=== PATIENT | male | born 1975 | race Two or more races ===

== ENCOUNTER 2025-05-02 12:39 | Emergency (ER) | payer OTHER, SELFPAY ==
[2025-05-02 12:42] VITALS: BP 162/101
[2025-05-02] MEDS: ZOFRAN 4 MG IV (13:11)
[2025-05-02] MEDS: TORADOL 15 MG IV (13:13)
[2025-05-02] MEDS: LR 1000 IV (13:13)
[2025-05-02 13:31] LABS: Hematocrit 46.5 % (39.0-52.0); Hemoglobin 15.2 g/dL (13.0-18.0); Mean Corp Hgb Conc. 32.7 g/dL (33.0-37.0); Mean Corpuscular Volume 79.2 fL (80.0-94.0); Nucleated Red Blood Cells % 0 % (-); Platelet Count 226 10^3/uL (130-400); Red Cell Dist. Width 13.8 % (11.5-14.5)
[2025-05-02 13:45] LABS: ALT (SGPT) 14 U/L (0-50); AST (SGOT) 29 U/L (17-59); Albumin 5.1 g/dl (3.5-5.0); Alkaline Phosphatase 86 U/L (38-126); Blood Urea Nitrogen 27 mg/dl (9-20); Calcium 9.5 mg/dl (8.4-10.2); Carbon Dioxide 28 mmol/L (22-30); Chloride 104 mmol/L (98-107); Glucose 131 mg/dl (70-99); Lipase 244 U/L (23-300); Potassium 4.9 mmol/L (3.5-5.1); Sodium 138 mmol/L (135-145); Total Protein 8.6 g/dl (6.3-8.2); eGFR > 60.00
--- NOTE | 2025-05-02 14:24 | ED.GENMED ---
History of Present Illness
General
Chief Complaint: Abdominal Pain
Time Seen by Provider: 05/02/25 12:45
History of Present Illness
History of Present Illness:
49-year-old male with no significant past medical history presents to the emergency department for evaluation of left lower quadrant pain intractable vomiting beginning at 3 AM today. No diarrhea. Pain has episodic severe waves of pain, pain does
not radiate. No dysuria or hematuria. No ill contacts.
Review of Systems
Review of Systems
Allergies reviewed?: Yes
All Other Systems: ROS reviewed and negative except as documented in HPI and ROS
Phy Exam
Physical Exam
Physical Exam:
GEN: Well appearing, NAD, WDWN
HEENT: Oral mucosa moist, no scleral icterus
Cardiac: Regular rate
Lung: No respiratory distress, no tachypnea
Abdomen: Soft, grossly nontender
MSK: No gross deformity or injuries
Skin: Good color, no pallor or jaundice, no rashes
Neuro: AO x3, moves all extremities freely
Psych: Calm, cooperative
Course
Orders/Labs/Results
Orders:
Orders
05/02/25 13:02
Ketorolac [Toradol] 15 mg IV NOW STA
Lactated Ringers [Lr] 1,000 ml IV BOLUS
Ondansetron Injectable [Zofran] 4 mg IV NOW STA
05/02/25 13:10
Complete Blood Count/With Diff Urgent
Comprehensive Metabolic Panel Urgent
Lipase Urgent
05/02/25 14:00
CT Abd/Pel (IV only)-DH only Urgent
Comment:
Reason For Exam: N/V/LLQ pain
05/02/25 15:36
Urinalysis Reflex To Culture Urgent
Date Specimen was Collected: 05/02/25
Time Specimen was Collected: 15:22
Urine Microscopic Reflex Cult Urgent
Abnormal Lab Results
05/02/25 05/02/25
13:10 15:36
WBC 11.6 H 10^3/uL
(4.8-10.8)
MCV 79.2 L fL
(80.0-94.0)
MCH 25.9 L pg
(27.0-31.0)
MCHC 32.7 L g/dL
(33.0-37.0)
MPV 11.0 H fL
(7.4-10.4)
Absolute Neuts (auto) 10.4 H 10^3/uL
(1.4-6.5)
Absolute Lymphs (auto) 0.8 L 10^3/uL
(1.2-3.4)
Neutrophils % 89.0 H %
(42.2-75.2)
Lymphocytes % 6.9 L %
(20.5-51.1)
BUN 27 H mg/dl
(9-20)
Glucose 131 H mg/dl
(70-99)
Total Protein 8.6 H g/dl
(6.3-8.2)
Albumin 5.1 H g/dl
(3.5-5.0)
Ur Occult Blood Reflex 4+ A
(Negative)
Urine RBC 26-30 A /HPF
(0-2)
Urine Bacteria (Reflex) Few A
(Negative)
Urine Albumin (Reflex) 2+ A
(Neg - Trace)
05/02/25 13:10
05/02/25 13:10
Vital Signs
Initial and Last Documented VS:
Initial Vital Signs
Temp Pulse Resp BP Pulse Ox
98 F 96 16 162/101 99
05/02/25 12:42 05/02/25 12:42 05/02/25 12:42 05/02/25 12:42 05/02/25 12:42
Last Documented Vital Signs
Temp Pulse Resp BP Pulse Ox
97.8 F 100 18 134/92 99
05/02/25 15:42 05/02/25 15:42 05/02/25 15:42 05/02/25 15:42 05/02/25 15:42
MDM/Problems Addressed
MDM/Problems Addressed:
Workup reveals acute distal ureteral stone as the etiology for his symptoms. No evidence of urinary tract infection. Pain improved after Toradol. Discussed supportive care and recommend urology follow-up if not improving in 1 week
*Pulse Oximetry
SaO2: 99
Oxygen Mode of Delivery: Room air
Patient hypoxic: no
*Critical Care Note
Total Time (30-74mins, 75-104mins- exclusive of procedures): Not Applicable
ED Attending Note
-
Portions of this chart may have been created with voice recognition software.� Occasional wrong word or��sound alike� substitutions may have occurred due to the inherent limitations of voice recognition software.
Discharge Plan
Departure
Patient Disposition: Home (Routine Discharge)
Date of Disposition: 05/02/25
Time of Disposition: 16:16
Patient with high blood pressure during this ER visit?: No
Discharge Problem:
Ureterolithiasis
Instructions: Kidney Stones (DC)
Prescriptions:
New
ketorolac 10 mg tablet
10 mg PO Q8H Qty: 15 0RF
Rx Instructions:
maximum total duration of 5 days from all oral, intranasal, or parenteral formulations
tamsulosin 0.4 mg capsule
0.4 mg PO HS Qty: 10 0RF
ondansetron 4 mg tablet,disintegrating
4 mg PO TIDPRN PRN (Reason: nausea/vomiting) Qty: 10 0RF
Referrals:
Kassie Landers MD [Family Provider, Family Practice]
John Mejia MD [Active, Urology]
Interventions
Interventions:
*Risk Screen - Suicide Last Done: 05/02/25 12:43
*General Assessment Last Done: 05/02/25 13:25
*Neglect/Abuse Screening Last Done: 05/02/25 12:43
*ED COVID-19 Vaccine History Last Done: 05/02/25 13:25
*ED Influenza Vaccine History Last Done: 05/02/25 13:25
*Nursing Disposition Last Done: 05/02/25 16:24
NC-Gctheo-Fhtusobydo Assessment Last Done: 05/02/25 13:25
Discharge Date and Time
Discharge Date/Time: 05/02/25 16:45
Print Language: SAMOAN
[2025-05-02 15:42] VITALS: BP 134/92
[2025-05-02 15:51] LABS: Urine Character Clear (Clear)
[2025-05-02 16:03] LABS: Urine White Cell 0-2 /HPF (0-5)
[2025-05-02 16:04] LABS: Urine Red Blood Cell 26-30 /HPF (0-2)
== END 2025-05-02 16:45 | disposition home or self-care (01) ==
LOC: EMR 12:39
PROVIDERS: Physician Assistant; EMERGENCY PHYSICIAN Emergency Medicine; FAMILY PHYSICIAN Family Medicine
DX: N13.2 Hydronephrosis with renal and ureteral calculous obstruction (principal)
CPT/HCPCS: 99284; 96374; 96375; 96361; 74177; 80053; 81003; 81015; 83690; 85025; Q9967

== ENCOUNTER 2025-05-06 13:35 | Emergency (ER) | payer OTHER, SELFPAY ==
[2025-05-06 13:49] VITALS: BP 161/92
[2025-05-06 14:10] LABS: Hematocrit 42.1 % (39.0-52.0); Hemoglobin 14.1 g/dL (13.0-18.0); Mean Corp Hgb Conc. 33.5 g/dL (33.0-37.0); Mean Corpuscular Volume 77.5 fL (80.0-94.0); Nucleated Red Blood Cells % 0 % (-); Platelet Count 217 10^3/uL (130-400); Red Cell Dist. Width 13.5 % (11.5-14.5)
[2025-05-06 14:24] LABS: ALT (SGPT) < 10 U/L (0-50); AST (SGOT) 25 U/L (17-59); Albumin 4.3 g/dl (3.5-5.0); Alkaline Phosphatase 79 U/L (38-126); Blood Urea Nitrogen 24 mg/dl (9-20); Calcium 8.8 mg/dl (8.4-10.2); Carbon Dioxide 32 mmol/L (22-30); Chloride 101 mmol/L (98-107); Glucose 91 mg/dl (70-99); Potassium 4.3 mmol/L (3.5-5.1); Sodium 137 mmol/L (135-145); Total Protein 7.5 g/dl (6.3-8.2); eGFR 45.29
[2025-05-06 14:28] LABS: Urine Character Clear (Clear)
[2025-05-06 14:52] LABS: Urine Red Blood Cell 30-40 /HPF (0-2); Urine White Cell 0-2 /HPF (0-5)
[2025-05-06 14:53] LABS: Urine Squamous Cell 0-2 /LPF (Few)
--- NOTE | 2025-05-06 16:36 | ED.GENMED ---
History of Present Illness
<Jenn Dennis, [employer] ROOM OPERATOR - Last Filed: 05/07/25 00:40>
General
Chief Complaint: Fever
Source: patient
Exam Limitations: none
Time Seen by Provider: 05/06/25 16:23
Nursing documentation reviewed up to this point in time: agreed with
History of Present Illness
History of Present Illness:
49 yo male here for chills, felt feverish but did not take temperature. Here 4 days ago and diagnosed with 3 mm left distal UVJ stone, DC'd on Flomax and pain meds. Pain has been controlled. Denies n/v. , a physician, reportedly spoke with
Ruenes today.
Past History
<Jenn Dennis, [employer] ROOM OPERATOR - Last Filed: 05/07/25 00:40>
Past History
ED Past Medical History: Asthma and Other (kidney stone)
ED Past Surgical History: None
Social History
Tobacco: Non-smoker
Personal:
Living: with family
Employment: Employed
Review of Systems
<Jenn Dennis, [employer] ROOM OPERATOR - Last Filed: 05/07/25 00:40>
Review of Systems
Allergies reviewed?: Yes
All Other Systems: ROS reviewed and negative except as documented in HPI and ROS
Phy Exam
<Jenn Dennis, [employer] ROOM OPERATOR - Last Filed: 05/07/25 00:40>
Physical Exam
Physical Exam:
GENERAL: No acute distress. A&Ox3.
CONSTITUTIONAL: Afebrile.
EYES: clear, conjunctivae normal
ENMT: moist mucus membranes, Pharynx nl
RESPIRATORY: Regular respirations, nonlabored, lungs clear.
CARDIOVASCULAR: Regular rate and rhythm, no murmurs, no rubs.
GI: Soft, nontender, normal BS
MUSCULOSKELETAL: Moves with ease. Well perfused.
SKIN: Warm, dry, pink
PSYCH: Normal mood and affect. Well kept, interactive and appropriate
NEUROLOGIC: Awake, alert and oriented. No focal neurological deficits
Course
<Jenn Dennis [employer] ROOM OPERATOR - Last Filed: 05/07/25 00:40>
Orders/Labs/Results
Orders:
Orders
05/06/25 14:00
Complete Blood Count/With Diff Urgent
Comprehensive Metabolic Panel Urgent
Lactic Acid Urgent
Urinalysis Reflex To Culture Urgent
Date Specimen was Collected: 05/06/25
Time Specimen was Collected: 13:52
Urine Microscopic Reflex Cult Urgent
05/06/25 16:27
0.9% Sodium Chloride 1000 ml [Nss] 1,000 ml IV BOLUS
05/06/25 17:17
CT Abd/pel Without Iv Or Oral Urgent
Comment:
Reason For Exam: worse kidney fx, chills, recent stone LUVJ
05/06/25 19:14
Ketorolac [Toradol] 15 mg .ROUTE .STK-MED ONE
Abnormal Lab Results
05/06/25
14:00
MCV 77.5 L fL
(80.0-94.0)
MCH 26.0 L pg
(27.0-31.0)
MPV 11.1 H fL
(7.4-10.4)
Absolute Monos (auto) 0.7 H 10^3/uL
(0.1-0.6)
Carbon Dioxide 32 H mmol/L
(22-30)
BUN 24 H mg/dl
(9-20)
Creatinine 1.8 H mg/dL
(0.7-1.3)
Ur Occult Blood Reflex 4+ A
(Negative)
Urine RBC 30-40 A /HPF
(0-2)
Urine Bacteria (Reflex) Few A
(Negative)
Urine Albumin (Reflex) 2+ A
(Neg - Trace)
05/06/25 14:00
05/06/25 14:00
Vital Signs
Initial and Last Documented VS:
Initial Vital Signs
Temp Pulse Resp BP Pulse Ox
97.9 F 87 16 161/92 98
05/06/25 13:49 05/06/25 13:49 05/06/25 13:49 05/06/25 13:49 05/06/25 13:49
Last Documented Vital Signs
Temp Pulse Resp BP Pulse Ox
98.4 F 82 18 138/80 100
05/06/25 19:09 05/06/25 19:09 05/06/25 19:09 05/06/25 19:09 05/06/25 19:09
<Fritz Dent, DO - Last Filed: 05/06/25 20:21>
Orders/Labs/Results
Orders:
Orders
05/06/25 14:00
Complete Blood Count/With Diff Urgent
Comprehensive Metabolic Panel Urgent
Lactic Acid Urgent
Urinalysis Reflex To Culture Urgent
Date Specimen was Collected: 05/06/25
Time Specimen was Collected: 13:52
Urine Microscopic Reflex Cult Urgent
05/06/25 16:27
0.9% Sodium Chloride 1000 ml [Nss] 1,000 ml IV BOLUS
05/06/25 17:17
CT Abd/pel Without Iv Or Oral Urgent
Comment:
Reason For Exam: worse kidney fx, chills, recent stone LUVJ
05/06/25 19:14
Ketorolac [Toradol] 15 mg .ROUTE .STK-MED ONE
Abnormal Lab Results
05/06/25
14:00
MCV 77.5 L fL
(80.0-94.0)
MCH 26.0 L pg
(27.0-31.0)
MPV 11.1 H fL
(7.4-10.4)
Absolute Monos (auto) 0.7 H 10^3/uL
(0.1-0.6)
Carbon Dioxide 32 H mmol/L
(22-30)
BUN 24 H mg/dl
(9-20)
Creatinine 1.8 H mg/dL
(0.7-1.3)
Ur Occult Blood Reflex 4+ A
(Negative)
Urine RBC 30-40 A /HPF
(0-2)
Urine Bacteria (Reflex) Few A
(Negative)
Urine Albumin (Reflex) 2+ A
(Neg - Trace)
05/06/25 14:00
05/06/25 14:00
Vital Signs
Initial and Last Documented VS:
Initial Vital Signs
Temp Pulse Resp BP Pulse Ox
97.9 F 87 16 161/92 98
05/06/25 13:49 05/06/25 13:49 05/06/25 13:49 05/06/25 13:49 05/06/25 13:49
Last Documented Vital Signs
Temp Pulse Resp BP Pulse Ox
98.4 F 82 18 138/80 100
05/06/25 19:09 05/06/25 19:09 05/06/25 19:09 05/06/25 19:09 05/06/25 19:09
<Jenn Dennis [employer] ROOM OPERATOR - Last Filed: 05/07/25 00:40>
MDM/Problems Addressed
Differential Diagnosis Includes:
Retained stone, pyelonephritis, UTI, dehydration, acute kidney injury, sepsis
MDM/Problems Addressed:
49 yo male here for chills, felt feverish but did not take temperature. Here 4 days ago and diagnosed with 3 mm left distal UVJ stone, DC'd on Flomax and pain meds. Pain has been controlled. Denies n/v. , a physician, reportedly spoke with .
Ruenes today.
Afebrile, NAD, totally non toxic appearing.
Concern for complications from the kidney stone, particularly infection, despite the absence of elevated white blood cell count or other infection markers in his blood and urine.
CMP: BUN/creat 24/.8 from 25/06.8 4 days ago. Has been taking Flomax daily
5:[address] Queen, Urology who recommends repeat CT scan.
7:[address] result reviewed: There is a 2 mm obstructing left ureterovesical junction calculus, similar to previous examination. Mild to moderate left ureteral and pelvicalyceal dilation with mild left perinephric stranding and periureteral stranding.
IMPRESSION:
2 mm obstructing left ureterovesical junction calculus, similar location as previous CT examination.
2 mm nephrolith in the lower pole of the right kidney, stable.
Results discussed with Theodore Sol who recommends pt go home with strict return instructions
Pt is comfortable, pain 08/06 has Tramadol at home to use if needed.
Dr. Dent in to speak to pt and he spoke with physician , offered admission but pt states he is comfortable going home.
All discharge instructions discussed, all questions answered. Pt OK for discharge. Has appt. with Dr. Ramirez in 2 days he will keep
Pt ambulated out with normal gait at discharge
<Jenn Dennis [employer] ROOM OPERATOR - Last Filed: 05/07/25 00:40>
*Pulse Oximetry
SaO2: 98
Oxygen Mode of Delivery: Room air
Patient hypoxic: no
*Critical Care Note
Total Time (30-74mins, 75-104mins- exclusive of procedures): Not Applicable
ED Attending Note
<Jenn Dennis [employer] ROOM OPERATOR - Last Filed: 05/07/25 00:40>
-
Portions of this chart may have been created with voice recognition software.� Occasional wrong word or��sound alike� substitutions may have occurred due to the inherent limitations of voice recognition software.
<Fritz Dent, DO - Last Filed: 05/06/25 20:21>
ED Attending Note
Patient seen and examined by attending physician: Yes
ED Attending Note:
I have reviewed and agree with history and treatment plan by Christen Dennis DNP. My exam revealed 49-year-old male in no acute distress, afebrile. Vital signs stable. Do not suspect infected kidney stone, normal urinalysis, no leukocytosis. Patient
feels better, encouraged to stop taking ketorolac as his creatinine increased slightly. He will follow-up with urology on Tuesday.
Discharge Plan
Departure
Patient Disposition: Home (Routine Discharge)
Date of Disposition: 05/06/25
Time of Disposition: 19:36
Patient with high blood pressure during this ER visit?: No
Condition: Good
Discharge Problem:
Calculus of distal left ureter
Instructions: Kidney stones in adults
Prescriptions:
No Action
ketorolac 10 mg tablet
10 mg PO Q8H Qty: 15 0RF
Rx Instructions:
maximum total duration of 5 days from all oral, intranasal, or parenteral formulations
tamsulosin 0.4 mg capsule
0.4 mg PO HS Qty: 10 0RF
ondansetron 4 mg tablet,disintegrating
4 mg PO TIDPRN PRN (Reason: nausea/vomiting) Qty: 10 0RF
Referrals:
Kassie Landers MD [Family Provider, Family Practice]
Robert Ramirez MD [Active, Urology] - Keep scheduled appt
Activity Restrictions/Additional Instructions:
As we discussed, return here immediately for fever above 101.5, vomiting, worsening pain or feeling sicker
Stop the Ketorolac due to your kidney functions
Drink at least 8 eight ounce glasses of water daily until stone passes.
Interventions
Interventions:
*Risk Screen - Suicide Last Done: 05/06/25 13:39
*General Assessment Last Done: 05/06/25 16:42
*Neglect/Abuse Screening Last Done: 05/06/25 16:42
*ED COVID-19 Vaccine History Last Done: 05/06/25 16:42
*ED Influenza Vaccine History Last Done: 05/06/25 16:42
[facility] Fall Risk Assessment Tool Last Done: 05/06/25 16:42
*Nursing Disposition Last Done: 05/06/25 19:57
ED- Neurological Assessment Last Done: 05/06/25 16:47
ED-Skin Assessment Last Done: 05/06/25 16:47
Discharge Date and Time
Discharge Date/Time: 05/06/25 20:22
Print Language: [place]
[2025-05-06 16:42] VITALS: BMI 36.0
[2025-05-06 16:45] VITALS: BP 149/92
[2025-05-06 16:46] VITALS: BP 149/92
[2025-05-06] MEDS: NSS 1000 IV (16:57)
[2025-05-06 17:00] VITALS: BP 149/101
[2025-05-06 17:59] VITALS: BP 119/74
[2025-05-06 19:09] VITALS: BP 138/80
== END 2025-05-06 20:22 | disposition home or self-care (01) ==
LOC: EMR 13:35
PROVIDERS: Student in an Organized Health Care Education/Training Program; EMERGENCY PHYSICIAN Emergency Medicine; FAMILY PHYSICIAN Family Medicine
DX: N20.2 Calculus of kidney with calculus of ureter (principal); J45.909 Unspecified asthma, uncomplicated; Z87.442 Personal history of urinary calculi
CPT/HCPCS: 99284; 96360; 74176; 80053; 81003; 81015; 83605; 85025